=== PATIENT | male | born 1935 | race Caucasian/White ===

== ENCOUNTER 2017-01-28 10:53 | Inpatient (IN) | payer MEDICARE ==
[~2017-01-28] VITALS: Ht 182.8 cm; Wt 67.2 kg
--- NOTE | ~2017-01-28 | PR ---
[place], [place] PROGRESS NOTE NAME: DAGO FRIEDMAN UNIT #: [id number] ROOM: 408 DOCTOR: ROSEMARIE LOUISE MD BIRTHDATE: [birth year] DOS: 01/30/2017 SUBJECTIVE: The patient continues to improve. OBJECTIVE: VITAL SIGNS: Blood pressure 129/71, heart rate 70 beats per minute, breathing 20 times per minute, temperature 98 degrees Fahrenheit. GENERAL APPEARANCE: The patient is alert and oriented x 3, in no visible distress, generalized weakness. HEENT AND NECK: Exam within normal limits. CARDIOVASCULAR SYSTEM: Heart rate is regular in rate and rhythm. S1 and S2 normally audible. LUNGS: Clear to auscultation. ABDOMEN: Soft, nontender. No obvious organomegaly. Bowel sounds are present. EXTREMITIES: Without significant cyanosis or edema. IMPRESSION: 1. The patient with acute tubular necrosis and stage IV acute over chronic kidney failure. Continues to improve with hydration with IV fluids. I will continue present treatment and continue to follow kidney function. 2. Type 2 diabetes mellitus. Metformin being stopped because of the patient's kidney failure. I will continue glipizide and on no concentrated sweet diet. 3. Acute herpes zoster infection involving the right chest, being treated with Valtrex and resolving. 4. Glaucoma, treated with Alphagan eyedrops and latanoprost eyedrops. ROSEMARIE LOUISE MD CM:PNTRANS [id number] ROSEMARIE LOUISE MD 01/30/17 1302 interface
--- NOTE | ~2017-01-28 | DS ---
[place], [place] DISCHARGE SUMMARY NAME: DAGO FRIEDMAN UNIT #: [id number] ROOM: 408 DOCTOR: ROSEMARIE LOUISE MD BIRTHDATE: [birth year] DOS: 02/01/2017 DISCHARGE DIAGNOSES: 1. Acute over chronic kidney failure with acute tubular necrosis, stage 4 chronic kidney disease have resolved with hydration. 2. Late onset Alzheimer's type dementia and patient wants to maintain a do not resuscitate comfort care code status with do not send to the hospital, consult [facility] to follow. 3. Glaucoma, treated and controlled. 4. Acute herpes zoster infection of right chest, treated with Valtrex. 5. Type 2 diabetes mellitus. 6. Chronic obstructive pulmonary disease. 7. Mixed hyperlipidemia. 8. Severe protein calorie malnutrition. 9. Normocytic anemia. 10. Generalized weakness and ambulatory dysfunction with recurrent falls. HOSPITAL COURSE: The patient was admitted to [facility] when he and was sent over from [facility] for decline in his condition and recurrent falls, weakness and mental confusion. The patient with late onset Alzheimer's type dementia with some mental confusion and his sister is the durable power of energy attorney. The patient says that he does not want to be transferred to the hospital again and wants to be [facility] at the [facility] and his sister who has the durable power of energy attorney agrees. The patient's sister has not decided about hospice care, but please consult [facility] for palliative consult to followup him at the [facility] and get the code status from his sister. Benign essential hypertension, with controlled blood pressure with treatment. Acute over chronic kidney failure with acute tubular necrosis with elevated BUN and creatinine, resolved with hydration with normal saline. Type 2 diabetes mellitus, with well controlled blood sugars. I stopped his metformin because of his kidney failure. Metformin is not appropriate medication to give to a patient with chronic kidney disease. Generalized weakness, failure to thrive, recurrent falls and poor prognosis with severe protein calorie malnutrition, also late onset Alzheimer's type dementia and some mental confusion. Type 2 diabetes mellitus, with reasonably controlled blood sugars. Metformin stopped. Centrilobular emphysema with chronic shortness breath, asymptomatic at the present time. Mixed hyperlipidemia, treated and followed. [place], [place] DISCHARGE SUMMARY NAME: DAGO FRIEDMAN UNIT #: [id number] ROOM: [facility] DOCTOR: DANI FLOWERS,ROSEMARIE Gonzalez BIRTHDATE: [birth year] Severe protein calorie malnutrition. LABORATORY DATA: A CT scan of the neck did not show any fractures. CT of the head did not show any acute abnormality. Blood cultures were all negative. Normal serum electrolytes now, except for BUN elevation to 53. CBC was normal. Chest x-ray without acute abnormality. DISCHARGE MANAGEMENT: Diltiazem CD 240 mg a day, aspirin 81 mg a day, Flomax 0.4 mg a day, Lexapro 10 mg a day, latanoprost eyedrops in both eyes at bedtime 1 drop, glipizide 5 mg b.i.d., Valtrex 1000 mg 3 times a day, finish 1 week of treatment, Alphagan eyedrops 0.2% one drop 4 times a day, MiraLax 17 grams daily p.r.n. for constipation. Consult [facility]. ROSEMARIE LOUISE MD CM:ELMA [id number] ROSEMARIE LOUISE MD 02/01/17 1134 interface
--- NOTE | ~2017-01-28 | CON ---
[place], [place] REPORT OF CONSULTATION NAME: DAGO FRIEDMAN UNIT #: [id number] ROOM: 408 DOCTOR: DEVIKA MIRZA ED.D (JENNIFER) BIRTHDATE: [birth year] DOS: HISTORY OF PRESENT ILLNESS: The patient is an 82-year-old male referred by Dr. Schulz for competency evaluation. At the present time, this patient is on the 4th floor at [facility]. He is single and never . He has no children. His sister, Jihan Wooten, does provide significant assistance to the patient. He is presently a resident at [facility]. This patient's family physician is Dr. Schulz. His medical history is pertinent for chronic kidney disease, hypertension, benign prostatic hypertrophy, diabetes mellitus type 2, COPD, delirium not otherwise specified and mild neurocognitive disease-Alzheimer disease. His medications include Cardizem, aspirin, Flomax, metformin, glipizide and Valtrex. This patient denies any substance abuse issues. This patient was awake, alert and oriented to person and place. He had some difficulty with time, but overall did fairly well. He does have some mild memory loss, but not significant. He, most generally, can make decisions regarding his care, but does like to defer to his sister and I would suggest that the patient and his sister should both be consulted for informed consent issues. He plans to return to [facility] once he is discharged from the hospital. DIAGNOSES: 1. Delirium, not otherwise specified. 2. Mild neurocognitive disease-Alzheimer's disease. RECOMMENDATIONS: In my opinion, it would be best to seek the consent from both the patient and his sister who is his power of belly dancer for any significant medical procedures. Thank you very much for this consult. DEVIKA MIRZA ED.D CM:CONSTR:REPORT OF CONSULTATION 1716 01/30/17 2018 interface ROSEMARIE SCHULZ MD
--- NOTE | ~2017-01-28 | PR ---
[place], [place] PROGRESS NOTE NAME: DAGO FRIEDMAN UNIT #: [id number] ROOM: 408 DOCTOR: ROSEMARIE LOUISE MD BIRTHDATE: [birth year] DOS: 01/31/2017 SUBJECTIVE: The patient continues to feel better. OBJECTIVE: VITAL SIGNS: Blood pressure 139/66, heart rate 87 beats per minute, breathing 18 times per minute, temperature 99 degrees Fahrenheit. GENERAL APPEARANCE: The patient is alert and oriented x 3, in no visible distress. HEENT AND NECK: Exam within normal limits. CARDIOVASCULAR SYSTEM: Heart rate is regular in rate and rhythm. S1 and S2 normally audible. LUNGS: Clear to auscultation. ABDOMEN: Soft, nontender. No obvious organomegaly. Bowel sounds are present. EXTREMITIES: Without significant cyanosis or edema. IMPRESSION: Generalized weakness and adult failure to thrive. The patient working with physical therapy. 1. Acute over chronic kidney failure with acute tubular necrosis with stage IV chronic kidney disease, has resolved. BUN and creatinine are coming within normal range. I will hydrate him for one more day and then send him back to the detention. 2. The patient with late onset Alzheimer's type dementia, wants to be kept comfortable only and not brought back to the hospital. For this, he had a competency evaluation by Dr. Marco Antonio Rawls. The patient and his sister are both agreeable to keeping his code status to no hospital transfer once he is sent back to detention. 2. Glaucoma, treated with Alphagan and latanoprost eyedrops. 3. Acute herpes zoster infection, right chest, being treated with Valtrex. 4. Type 2 diabetes mellitus. Blood sugars are being monitored and treated. ROSEMARIE LOUISE MD CM:PNTRANS [phone] ROSEMARIE LOUISE MD 01/31/17 2325 interface
--- NOTE | ~2017-01-28 | PR ---
[place], [place] PROGRESS NOTE NAME: DAGO FRIEDMAN UNIT #: [id number] ROOM: 408 DOCTOR: ROSEMARIE LOUISE MD BIRTHDATE: [birth year] DOS: 01/29/2017 SUBJECTIVE: Patient improving, appears alert and oriented. PHYSICAL EXAMINATION: VITAL SIGNS: Blood pressure 113/58, heart rate 86 beats per minute, breathing 20 times per minute, temperature 98 degrees Fahrenheit. GENERAL APPEARANCE: The patient is alert and oriented x 3, in no visible distress. HEENT AND NECK: Exam within normal limits. CARDIOVASCULAR SYSTEM: Heart rate is regular in rate and rhythm. S1 and S2 normally audible. LUNGS: Clear to auscultation. ABDOMEN: Soft, nontender. No obvious organomegaly. Bowel sounds are present. EXTREMITIES: Without significant cyanosis or edema. IMPRESSION: 1. Acute over chronic kidney disease, acute tubular necrosis, improving with hydration and normal saline, which I will continue. BUN and creatinine have improved to 50 and 3.17 today. 2. Benign essential hypertension, with better controlled blood pressures with treatment. 3. Type 2 diabetes mellitus with reasonably controlled blood sugars, staying normal. 4. Generalized weakness and recurrent falls. Patient working with Physical Therapy. 5. Centrilobular emphysema, treated with bronchodilators. 6. Severe protein calorie malnutrition. Patient working with Dietary. ROSEMARIE LOUISE MD CM:PNTRANS [id number] ROSEMARIE LOUISE MD 01/30/17 0034 interface
--- NOTE | ~2017-01-28 | WRIGHTHP ---
[place], [place] PATIENT HISTORY AND PHYSICAL EXAM [id number] UNIT #: [id number] ROOM: 408 DOCTOR: ROSEMARIE LOUISE MD BIRTHDATE: [birth year] DOS: 01/28/2017 HISTORY OF PRESENT ILLNESS: The patient is an 82-year-old gentleman with a past medical history of; 1. Chronic kidney disease, stage 4. 2. Generalized weakness and ambulatory dysfunction with recurrent falls. 3. Normocytic anemia. 4. Benign essential hypertension. 5. BPH. 6. Type 2 diabetes mellitus. 7. COPD. 8. Hyperlipidemia. 9. Severe protein-calorie malnutrition. The patient is a resident at [facility] and was sent over to [facility] for feeling unwell. The patient was found to be in acute over chronic kidney disease and recommended for admission and further management. After admission, the patient appears to be oriented, although he has some difficulty in speaking and the patient says he did not want to be admitted to [facility]. The patient has been considered to be somewhat mentally confused and unable to decide for himself. The patient says that his sister helps him decide about his medical issues and treatment. No chest pain, no shortness of breath. No other GI or urinary symptoms. The patient had an unwitnessed fall at senior care and he was suspected to have possibly hit his head, so he was sent to the Emergency Department to be checked for head injury with a noncontrast CT of the head. REVIEW OF SYSTEMS: LUNGS: No increasing shortness of breath or wheezing. GASTROINTESTINAL: No nausea, vomiting, diarrhea or constipation. CARDIOVASCULAR: No chest pains or palpitations. FAMILY HISTORY: Noncontributory. HOME MEDICATIONS: Diltiazem, aspirin, Flomax, Lexapro, latanoprost eyedrops, metformin, glipizide, Valtrex, Alphagan eyedrops. PHYSICAL EXAMINATION: GENERAL: Alert, appears mostly oriented, but has some dysarthria, in no visible distress, generalized weakness. HEENT AND NECK: Extraocular movements are intact. Sclerae are anicteric. Oral mucosa is moist and clean. No obvious facial weakness. Neck is supple without any lymphadenopathy. No thyromegaly. No JVD. No carotid arterial bruits. LUNGS: Clear to auscultation. No wheezing. No rhonchi. CARDIOVASCULAR SYSTEM: Heart rate is regular in rate and rhythm. S1 and S2 normally audible. No significant murmur or any other abnormal cardiac sounds. ABDOMEN: Soft, nontender. No obvious organomegaly. Bowel sounds are present. No obvious herniation. EXTREMITIES: Without significant cyanosis or edema. Warm to touch. [place], [place] PATIENT HISTORY AND PHYSICAL EXAM NAME: DAGO FRIEDMAN UNIT #: [id number] ROOM: [facility] DOCTOR: ROSEMARIE LOUISE MD BIRTHDATE: [birth year] CENTRAL NERVOUS SYSTEM: Alert and oriented x 3. Cranial nerves II-XII are intact. Speech is normal. The patient is able to move all extremities. Normal muscle strength. Deep tendon reflexes are equal on both sides. Plantars were downgoing. LABORATORY DATA: BUN and creatinine 51 and 4.7. Normal serum electrolytes otherwise lactic acid level of 2.6, improved to 1.3 with hydration. Normal CBC. IMPRESSION: 1. The patient with old age, multiple medical problems and adult failure to thrive. The patient says he only wants to be kept comfortable at senior care and he appears oriented and also has a durable power of criminal defense attorney, his sister, who helps him decide. I am consulting Dr. He Rawls to help me decide about his mental status and ability to decide for himself and in that case, I will make his code status appropriate to his request and also consult palliative care on him to discuss this matter with the patient and his sister to make sure that that is what they want done. So far, it appears that the patient wants a DNR-CC with no hospital transfer code status. 2. Acute over chronic kidney disease with BUN and creatinine elevated to 50 and 4.7, which is stage 5 kidney failure. The patient is to be treated with hydration normal saline, and I will check his serum electrolytes, BUN, and creatinine on daily basis. 3. Generalized weakness, recurrent falls. We will take fall precautions and consult Physical therapy to work with them. 4. Benign essential hypertension with controlled blood pressures with treatment. 5. Benign prostatic hyperplasia and urinary retention, asymptomatic with treatment. 6. Type 2 diabetes mellitus. Blood sugars will be monitored and treated. They appear to be reasonably controlled. 7. Centrilobular emphysema with chronic shortness of breath, asymptomatic at this time. 8. Mixed hyperlipidemia, to be followed and treated. 9. Severe protein-calorie malnutrition. The patient to work with dietary. [place], [place] PATIENT HISTORY AND PHYSICAL EXAM NAME: DAGO FRIEDMAN UNIT #: [id number] ROOM: [facility] DOCTOR: ROSEMARIE LOUISE MD BIRTHDATE: [birth year] ROSEMARIE LOUISE MD CM:HISPHYS:PATIENT HISTORY AND PHYSICAL EXAMINATION 1501 14 ROSEMARIE LOUISE MD 01/28/17 1714 interface
[~2017-01-28 10:53] MED LIST: ASPIRIN ADULT L81 M1 PO; AVPAK AZITHROM250 MG PO; BRIMONIDINE TART5 ML OU; DILTIAZEM CD240 MG PO; FLOMAX0.4 MG PO; GLIPIZIDE5 MG PO; HYDROCORTISONE30 G2 T; LEVAQUIN750 M1 PO; LUTEIN40 MG PO; PREPARATION H CR1 OZ R; PROVENTIL0.09 MG/A1 INH; VIBRAMYCIN100 MG PO; XALATAN 0.005%2.5 ML OU; ZESTRIL30 M3 PO; Zestril,Prinivi40 MG PO; [UNRECOGNIZED DRUG - OTHER] TP
[2017-01-28 10:55] VITALS: BP 130/68
--- NOTE | 2017-01-28 11:06 | NUR ---
ASSESSED SPINE ON ARRIVAL, BACK BOARD AND MILAN REMOVED, COLLAR REMAINS IN PLACE. NO VOICED COMPKLAINTS FROM PT.
[2017-01-28 11:17] LABS: BASO % 0.1 % (0.0-1.0); EOS % 0.1 % (1.0-4.0); HEMATOCRIT 42.2 % (42.0-52.0); HEMOGLOBIN 14.3 g/dl (14.0-18.0); LYMPH # 0.9 10*3/uL (1.3-4.4); LYMPH % 9.3 % (27.0-41.0); MEAN CELL VOLUME 88.7 fl (80.0-94.0); MEAN CORPUSCULAR HGB CONC 33.9 g/dl (33.0-37.0); MEAN PLATELET VOLUME 8.5 fl (9.6-12.3); MONO # 0.6 10*3/uL (0.1-1.0); MONO % 6.6 % (3.0-9.0); NEUT # 7.6 10*3/uL (2.3-7.9); NEUT % 82.5 % (47.0-73.0); PLATELET COUNT AUTOMATED 282 10*3/uL (130-400); RED BLOOD COUNT 4.76 10*6/uL (4.50-5.90); WHITE BLOOD COUNT 9.2 10*3/uL (4.8-10.8)
[2017-01-28 11:36] LABS: ALBUMIN 4.3 gm/dl (3.1-4.5); ALKALINE PHOSPHATASE 137 U/L (45-117); BUN 51 mg/dl (7-24); CHLORIDE 95 mmol/L (98-107); SGOT/AST 16 IU/L (3-35); SGPT/ALT 18 U/L (12-78); SODIUM 134 mmol/L (136-145); TOTAL PROTEIN 9.1 gm/dL (6.4-8.2)
[2017-01-28 11:37] LABS: TROPONIN I < 0.015 ng/ml (<0.045)
--- NOTE | 2017-01-28 12:12 | NUR ---
PT REFUSES TO BE ADMITTED. STATES HE IS CONFUSED AND WILL BE ADMITTED. NOW REQUESTS TO SPEAK WITH PT'S SISTER. PT INSISTANT THAT HE "[facility]IF I , I , I DON'T WANT TO STAY HERE." AWARE AND IS NOW SPEAKING WITH HIS SISTER JESSIKA PARISIGLORIA, .
--- NOTE | 2017-01-28 12:23 | NUR ---
NURSE REPORT TO MARIA EUGENIA BEARDEN RN, FOR END OF CARE REPORT.
[2017-01-28 12:27] LABS: BILIRUBIN NEGATIVE (NEGATIVE); BLOOD TRACE-INTACT (NEGATIVE); CLARITY SL CLOUDY (CLEAR); COLOR YELLOW (YELLOW); GLUCOSE NEGATIVE (NEGATIVE); KETONE NEGATIVE (NEGATIVE); LEUKO ESTERASE NEGATIVE (NEGATIVE); NITRITE NEGATIVE (NEGATIVE); SPECIFIC GRAVITY 1.015 (1.005-1.030); UROBILINOGEN 0.2 E.U./dl (0.2-1.0)
[2017-01-28 12:37] LABS: BACTERIA TRACE
--- NOTE | 2017-01-28 13:49 | NUR ---
UNABLE TO VERIFY PT'S MEDICATION RECINCILIATION....PHARMACY CLOSED, PT IS CONFUSED.
[2017-01-28 14:07] VITALS: BP 153/69
[2017-01-28] MEDS ORDERED: VALTREX1000 MG PO (14:23)
[2017-01-28] MEDS ORDERED: LEXAPRO10 MG PO (14:25)
[2017-01-28] MEDS ORDERED: METFORMIN500 MG PO (14:27)
[2017-01-28] MEDS ORDERED: CARTIA XT240 MG PO (14:29)
[2017-01-28] MEDS ORDERED: VITAMIN D32000 UNIT PO (14:31)
[2017-01-28] MEDS ORDERED: NATURE'S BLEND F1 MG PO (14:31)
--- NOTE | 2017-01-28 14:33 | NUR ---
MED REC UPDATED PER [facility] PAPERS.
--- NOTE | 2017-01-28 14:37 | NUR ---
MSADMTime: 1400 A 82 year old MALE admitted to under services of DR. DANI FLOWERS,ROSEMARIE Jason Pt. arrived via bed from ER. Chief complaint: INCREASED CONFUSION. ZANE PARRA
--- NOTE | 2017-01-28 15:07 | NUR ---
DR. MIRZA NOTIFIED OF CONSULT.
[2017-01-28 16:00] VITALS: BP 152/80
--- NOTE | 2017-01-28 20:00 | NUR ---
RESTING IN BED. PLEASANTLY CONFUSED; COOPERATIVE WITH ASSESSMENT. IV FLUIDS INFUSING INTO RIGHT ANTECUBITAL WITHOUT DIFFICULTY; SITE ASYMPTOMATIC. LUNGS CLEAR WITH NO COUGH NOTED. MOONEY PATENT FOR [place] URINE. NO EDEMA NOTED. REPOSITIONED IN BED FOR COMFORT. CALL LIGHT WITHIN REACH. BED IN LOW POSITION.
[2017-01-28 21:18] VITALS: BP 143/71
[2017-01-29] VITALS: BP 133/79
--- NOTE | 2017-01-29 | NUR ---
RESTING IN BED WITH EYES CLOSED; NO DISTRESS NOTED. CALL LIGHT WITHIN REACH.
[2017-01-29 06:29] LABS: BASO % 0.2 % (0.0-1.0); EOS % 0.2 % (1.0-4.0); HEMATOCRIT 43.9 % (42.0-52.0); HEMOGLOBIN 14.6 g/dl (14.0-18.0); LYMPH # 1.1 10*3/uL (1.3-4.4); LYMPH % 12.5 % (27.0-41.0); MEAN CELL VOLUME 89.2 fl (80.0-94.0); MEAN CORPUSCULAR HGB 29.7 pg (27.0-31.0); MEAN CORPUSCULAR HGB CONC 33.3 g/dl (33.0-37.0); MEAN PLATELET VOLUME 8.8 fl (9.6-12.3); MONO # 0.8 10*3/uL (0.1-1.0); MONO % 9.7 % (3.0-9.0); NEUT # 6.5 10*3/uL (2.3-7.9); NEUT % 76.3 % (47.0-73.0); PLATELET COUNT AUTOMATED 298 10*3/uL (130-400); RED BLOOD COUNT 4.92 10*6/uL (4.50-5.90); RED CELL DISTRI WIDTH 13.9 % (0-14.5); WHITE BLOOD COUNT 8.6 10*3/uL (4.8-10.8)
[2017-01-29 06:40] LABS: CREATININE 3.17 mg/dL (0.70-1.30); POTASSIUM 4.5 mmol/L (3.5-5.1)
[2017-01-29 08:00] VITALS: BP 160/86
--- NOTE | 2017-01-29 08:00 | NUR ---
HOB ELEVATED, EASY RESPIRATIONS WITH SKIN W/D. SLEEPING, AROUSES EASILY. CONFUSED TO TIME,PLACE & PERSON. PT NON-COMPLIANT WITH AM ASSESSMENT. REFUSES TO EAT. SHINGLES TO RT FLANK & RT GROIN AREA. REPOSITIONED FOR COMFORT & TO RELIEVE PRESSURE AREAS. BEDALARM FOR PT SAFETY. ISOLATION PRECAUTIONS MAINTAINED. SEE SHIFT ASSESSMENT.
[2017-01-29 16:00] VITALS: BP 113/58
--- NOTE | 2017-01-29 18:59 | NUR ---
VERY POOR APPETITE, PT UNCOOPERATIVE WITH STAFF. WILL NOT PERMIT STAFF TO OFFER ALTERNATIVES FOR FOOD THAT HE STATES HE DISLIKES, STATES "JUST LEAVE ME ALONE"
[2017-01-30] VITALS: BP 124/76
[2017-01-30 07:27] LABS: POTASSIUM 3.8 mmol/L (3.5-5.1)
[2017-01-30 07:29] LABS: CREATININE 2.02 mg/dL (0.70-1.30)
[2017-01-30 08:00] VITALS: BP 129/71
--- NOTE | 2017-01-30 08:25 | NUR ---
PHYSICAL THERAPY PAtient with multiple staff members at this time. Adalgisa Peterson,PT
--- NOTE | 2017-01-30 08:30 | NUR ---
[facility] FOR [facility].
--- NOTE | 2017-01-30 08:30 | NUR ---
DR LOUISE HAS ORDERED PALLIATIVE CARE. LINK MORRIS.
--- NOTE | 2017-01-30 12:42 | NUR ---
Patient is LTC at [facility] and can return when medically stable for discharge.
--- NOTE | 2017-01-30 14:06 | NUR ---
PHYSICAL THERAPY PAtient [facility] refuses PT services at this time. Thank you for this referral. Adalgisa Peterson,PT
[2017-01-30 16:00] VITALS: BP 113/55
[2017-01-30 20:00] VITALS: BP 127/53
--- NOTE | 2017-01-30 21:12 | NUR ---
PT ASSESSED, ALERT AND COOPERATIVE. RESPIRATIONS EASY AND UNLABORED. NO S/S OF DISTRESS AT THIS TIME. IV CATHETER PATENT, DRESSING DRY AND IN TACT, FLUIDS RUNNING PER ORDER. MOONEY CATHETER DRAINING STRAW COLORED URINE. WILL CONTINE TO MONITOR THROUGHOUT SHIFT.
--- NOTE | 2017-01-30 22:28 | NUR ---
24 HR chart check completed.
--- NOTE | 2017-01-30 23:15 | NUR ---
IV started left forearm with #22 angiocath after 1ST attempts. The IV site was prepped with Chloraprep. Heparin lock attached. IV solution 0.9NS infusing at 60 cc/hr. Sterile dressing applied. Patient tolerated precedure well. Procedure performed according to [facility] policy & procedure. SHARLA JAMESON
[2017-01-31] VITALS: BP 146/51
--- NOTE | 2017-01-31 06:30 | NUR ---
PT AM MEDICATION TAKEN WITH EASE. IV SITE PATENT, DRESSING DRY AND IN TACT. IV FLUIDS RUNNING PER ORDER. RESPRIATIONS EASY AND UNLABORED. NO S/S OF DISTRESS. PT CURRENTLY RESTING IN BED.
[2017-01-31 07:03] LABS: CHLORIDE 101 mmol/L (98-107); CREATININE 1.29 mg/dL (0.70-1.30); POTASSIUM 3.8 mmol/L (3.5-5.1); SODIUM 137 mmol/L (136-145)
[2017-01-31 07:05] LABS: BUN 36 mg/dl (7-24)
[2017-01-31 08:00] VITALS: BP 120/72
--- NOTE | 2017-01-31 08:00 | NUR ---
PATIENT IS SUPINE IN BED. PATIENT COOPERATIVE WITH NO COMPLAINTS OF PAIN. ERIK GonzalezDRCC
--- NOTE | 2017-01-31 10:36 | NUR ---
PATIENT RESTING ON LEFT SIDE IN BED. NO COMPLAINTS OF DISCOMFORT OR PAIN. ERIK SMITHU.RCC
--- NOTE | 2017-01-31 10:46 | NUR ---
REFUSES MEDS AT THIS TIME. YELLED AND THREATENED. SAYS HE IS TIRED BECAUSE THE NURSE KEPT HIM UP ALL NIGHT.
--- NOTE | 2017-01-31 12:07 | NUR ---
Attempted Physical therapy evaluation. Patient refused stating he did not sleep all night. Patient spoke shortly and did not open his eyes.
--- NOTE | 2017-01-31 12:24 | NUR ---
TRIED TO ADMINISTER MEDS WITH SISTER PRESENT, STILL REFUSING.
--- NOTE | 2017-01-31 12:41 | NUR ---
PATIENT HAS FAMILY MEMBER VISITING. NO COMPLAINTS OF DISCOMFORT OR PAIN AT THIS TIME. ERIK JOSEPH [facility]
--- NOTE | 2017-01-31 12:43 | NUR ---
SISTER IS FEEDING PATIENT LUNCH, HE WAS AGREEABLE TO TAKING AM MEDS, SEE EMAR.
--- NOTE | 2017-01-31 14:48 | NUR ---
Faxed updates for Mary at [facility] for review.
[2017-01-31 16:00] VITALS: BP 139/66
--- NOTE | 2017-01-31 23:52 | NUR ---
PATIENT REFUSED VALTREX AND EYE DROP.
[2017-02-01] VITALS: BP 119/52
[2017-02-01 07:32] VITALS: BP 160/78
--- NOTE | 2017-02-01 08:08 | NUR ---
PATIENT IN BED WAS AROUSED EASILY. MOONEY CATHETER DRAINAGE CLEAR. IV SITE ASYMPTOMATIC. NO COMPLAINTS OF DISCOMFORT OR PAIN AT THIS TIME. ERIK JOSEPH [facility]
--- NOTE | 2017-02-01 10:00 | NUR ---
PATIENT IS IN A PLEASANT MOOD. RESTING IN BED. NO COMPLAINTS OF DISCOMFORT OR PAIN AT THIS TIME. ERIK JOSEPH SPNJDHAV[facility]
--- NOTE | 2017-02-01 11:17 | NUR ---
PATIENT AWAITING DISCHARGE. IV DISCONTINUED AND REMOVED. SITE ASYMTOMATIC. IV CATHETER INTACT. MOONEY CATHETER DISCONTINUED AND REMOVED. OUTPUT DOCUMENTED. PATIENT TOLERATED WELL. ERIK JOSEPH [facility]
--- NOTE | 2017-02-01 11:31 | NUR ---
CONTROL CENTER OPERATOR NOTIFIED SW THAT PT WAS DISCHARGED. SW WILL SET UP TRANSPORTATION FOR PT'S RETURN TO [facility].
--- NOTE | 2017-02-01 11:32 | NUR ---
AMANDEEP ARRANGED TRANSPORTATION WITH [employer] FOR 1:30PM STEAM PRESS TENDER FOR HIS RETURN TO [facility].
--- NOTE | 2017-02-01 11:33 | NUR ---
SW NOTIFIED CONFERENCE COORDINATOR THAT TRANSPORATION WAS ARRANGED FOR PT TO RETURN TO [facility] WITH [facility] AT 1:30PM.
--- NOTE | 2017-02-01 11:34 | NUR ---
AMANDEEP NOTIFIED MARLENI AT [facility] THAT PT WAS BEING PICKED UP AT 1:30PM BY [facility] TO RETURN TO FACILITY.
--- NOTE | 2017-02-01 11:36 | NUR ---
SW TRIED TO NOTIFY SISTER JESSIKA ABOUT PT'S RETURN TO [facility] BUT SHE WAS NOT HOME.
--- NOTE | 2017-02-01 12:03 | NUR ---
SW NOTIIFED PT AND SISTER JESSIKA THAT WAS PT WAS RETURNING TO [facility] AT 1:30PM. PT WAS HAPPY TO BE GOING HOME.
--- NOTE | 2017-02-01 12:04 | NUR ---
FOOTWEAR SALES REPRESENTATIVE REQUESTED PT TIME BE MOVED UP TO 12:30PM. SW CALLED [facility] AND THEY CAN ENTRY SPECIALIST PT AT 12;30PM. SW NOTIFIED PT AND SISTER.
--- NOTE | 2017-02-01 12:12 | NUR ---
MOONEY CATHETER AND HEPLOCK DISCONTINUED BY NURSING STUDENTS IN PREPARATION FOR DISCHARGE TO [facility] AT 1230 BY AMBULANCE.
--- NOTE | 2017-02-01 12:24 | NUR ---
REPORT CALLED TO RECEIVING NURSE AT [facility]. AMBULANCE PICK-UP SCHEDULED FOR 1230.
--- NOTE | 2017-02-01 12:34 | NUR ---
PT DISCHARGED TO [facility]. TRANSPORTED VIA [facility]. STABLE NO COMPLAINTS AT THIS TIME. SISTER LEFT WITH PATIENT. TRINITY MENA SPNJDRCC
--- NOTE | 2017-02-01 12:35 | NUR ---
PATIENT DISCHARGED TO [facility] BY AMBULANCE SERVICE AT THIS TIME.
== END 2017-02-01 12:34 | disposition home or self-care (01) | DRG 682 ==
LOC: ED 10:53 → EDHOLD 12:23 → 4E 12:23
PROVIDERS: Student in an Organized Health Care Education/Training Program; ADMIT Internal Medicine
DX: N17.0 Acute kidney failure with tubular necrosis (principal); E43 Unspecified severe protein-calorie malnutrition; G93.41 Metabolic encephalopathy; E87.2 Acidosis; E11.22 Type 2 diabetes mellitus with diabetic chronic kidney disease; D64.9 Anemia, unspecified; G30.1 Alzheimer's disease with late onset; B02.9 Zoster without complications; F02.80 Dementia in other diseases classified elsewhere, unspecified severity, without behavioral disturbance, psychotic disturbance, mood disturbance, and anxiety; Z68.1 Body mass index [BMI] 19.9 or less, adult; J44.9 Chronic obstructive pulmonary disease, unspecified; N18.4 Chronic kidney disease, stage 4 (severe); Z66 Do not resuscitate; Z51.5 Encounter for palliative care; H40.9 Unspecified glaucoma; R29.6 Repeated falls; R62.7 Adult failure to thrive; E78.2 Mixed hyperlipidemia; N40.1 Benign prostatic hyperplasia with lower urinary tract symptoms; R33.8 Other retention of urine; R41.0 Disorientation, unspecified; I12.9 Hypertensive chronic kidney disease with stage 1 through stage 4 chronic kidney disease, or unspecified chronic kidney disease; W18.39XA Other fall on same level, initial encounter; Y93.89 Activity, other specified; Y92.128 Other place in nursing home as the place of occurrence of the external cause; Y99.8 Other external cause status